=== PATIENT | male | born 1930 | race Caucasian/White ===

== ENCOUNTER 2019-01-25 16:19 | Emergency (ER) | payer MEDICARE, OTHER ==
[2019-01-25] MEDS ORDERED: Albuterol/Ipratropium 3.0-0.5 MG/3 ML Neb Soln ONE (17:57)
[2019-01-25] MEDS: Albuterol/Ipratropium 3.0-0.5 MG/3 ML Neb Soln NEB PRN ×2 (18:01→20:27)
[2019-01-25] MEDS ORDERED: Sodium Chloride 0.9% 10 ML Syringe FLUSH PRN (18:01)
[2019-01-25] MEDS ORDERED: Acetaminophen 325 MG Tab PO ONE (18:16)
[2019-01-25] MEDS ORDERED: Dexamethasone 4 MG/ML SDV IVPUSH ONE (18:45)
[2019-01-25] MEDS ORDERED: cefTRIAXone 2 GM Vial IV ONE (19:25)
[2019-01-25] MEDS ORDERED: Sodium Chloride 0.9% 1,000 ML IV SCH (19:30)
[2019-01-25] MEDS ORDERED: cefTRIAXone 2 GM in Sodium Chloride 0.9% 100 ML IV STA (19:31)
--- NOTE | 2019-01-25 20:00 | EDM.PDOC ---
ED HPI GENERAL MEDICAL PROBLEM - General Chief Complaint: Respiratory Problem Stated Complaint: DIZZY, ABDOMINAL PAIN AND DIFFICULTY TO MOVE LEGS Time Seen by Provider: 01/25/19 17:19 Generalized Pain Score (Numeric/FACES): 5 - Related Data Allergies Allergy/AdvReac Type Severity Reaction Status Date / Time No Known Allergies Allergy Verified 01/25/19 16:38 Home Meds: Home Meds Adalimumab [Humira(Cf) Pen] 1 injection [id number] ASDIRECTED 01/25/19 [History] Albuterol [Proventil HFA] 2 inh INH Q6H PRN 01/25/19 [History] Aspirin [Ecotrin] 162 mg PO DAILY 01/25/19 [History] B2/Vit A,C & E/Lut/Zeaxanth/Mn [Icaps] 1 tab PO DAILY 01/25/19 [History] Budesonide/Formoterol [Symbicort 160-4.5 MCG] 2 inh INH BID 01/25/19 [History] Clopidogrel [Plavix] 75 mg PO DAILY 01/25/19 [History] Levofloxacin [Levaquin] 750 mg PO DAILY 5 Days #5 tablet 01/25/19 [Rx] Losartan [Cozaar] 50 mg PO DAILY 01/25/19 [History] Methotrexate 6 tab PO WEEKLY 01/25/19 [History] Metoprolol Tartrate [Lopressor] 12.5 mg PO BID 01/25/19 [History] Montelukast [Singulair] 10 mg PO BEDTIME 01/25/19 [History] Nitroglycerin [Nitrostat] 0.4 mg SL ASDIRECTED PRN 01/25/19 [History] Omeprazole 20 mg PO DAILY 01/25/19 [History] Rosuvastatin [Crestor] 20 mg PO DAILY 01/25/19 [History] Tamsulosin [Flomax] 0.4 mg PO BEDTIME 01/25/19 [History] Past Medical History HEENT History: Reports: Impaired Vision Cardiovascular History: Reports: CAD, High Cholesterol, MS Respiratory History: Reports: Asthma - Past Surgical History HEENT Surgical History: Reports: Cataract Surgery Cardiovascular Surgical History: Reports: Carotid Stents Musculoskeletal Surgical History: Reports: Knee Replacement, Shoulder Replacement Social & Family History - Tobacco Use Smoking Status *Q: Never Smoker Second Hand Smoke Exposure: No - Caffeine Use Caffeine Use: Reports: Coffee - Recreational Drug Use Recreational Drug Use: No ED ROS GENERAL - Review of Systems Review Of Systems: See Below Constitutional: Reports: Fever, Chills, Weakness HEENT: Reports: No Symptoms Respiratory: Reports: Shortness of Breath, Cough Cardiovascular: Reports: No Symptoms Endocrine: Reports: No Symptoms GI/Abdominal: Reports: No Symptoms : Reports: No Symptoms Musculoskeletal: Reports: Joint Pain (right hip pain) Skin: Reports: No Symptoms Neurological: Reports: Dizziness. Denies: Headache Psychiatric: Reports: No Symptoms ED EXAM, GENERAL - Physical Exam Exam: See Below Exam Limited By: No Limitations General Appearance: Alert, WD/WN, No Apparent Distress Ears: Normal External Exam, Normal Canal, Hearing Grossly Normal, Normal TMs Nose: Normal Inspection, Normal Mucosa, No Blood Throat/Mouth: Normal Inspection, Normal Lips, Normal Teeth, Normal Gums, Normal Oropharynx, Normal Voice, No Airway Compromise Head: Atraumatic, Normocephalic Neck: Normal Inspection, Supple, Non-Tender, Full Range of Motion Respiratory/Chest: No Respiratory Distress, No Accessory Muscle Use, Chest Non- Tender, Decreased Breath Sounds Cardiovascular: Normal Peripheral Pulses, No Edema, No Gallop, No JVD, No Murmur , No Rub, Tachycardia, Extra Beats GI/Abdominal: Normal Bowel Sounds, Soft, Non-Tender, No Organomegaly, No Distention, No Abnormal Bruit, No Mass, Pelvis Stable Back Exam: Normal Inspection, Full Range of Motion Extremities: Normal Inspection, Normal Range of Motion, Non-Tender, No Pedal Edema, Normal Capillary Refill, Other (negative straight leg examination) Neurological: Alert, Oriented, CN II-XII Intact, Normal Cognition, Normal Gait, Normal Reflexes, No Motor/Sensory Deficits Psychiatric: Normal Affect, Normal Mood Skin Exam: Warm, Dry, Intact, Normal Color, No Rash Lymphatic: No Adenopathy EKG INTERPRETATION EKG Date: 01/25/19 Time: 18:35 Rhythm: Other (sinus tachycardia) EKG Interpretation Comments: sinus tachycardia, no avb. No AE, 3 PVC. No ischemic changes. Early transition. No LAD/RAD. No LVH/RVH, QTC WNLS. Course - Vital Signs Last Recorded V/S: Last Vital Signs Temp 101.5 F H 01/25/19 16:39 Pulse 113 H 01/25/19 16:39 Resp 28 H 01/25/19 16:39 BP 135/74 01/25/19 16:39 Pulse Ox 92 L 01/25/19 20:27 - Orders/Labs/Meds Orders: Active Orders 24 hr Category Date Time Status EKG Documentation Completion [RC] STAT Care 01/25/19 18:01 Active RT Aerosol Therapy [RC] ASDIRECTED Care 01/25/19 17:58 Active Chest 2V [CR] Stat Exams 01/25/19 17:20 Taken CULTURE BLOOD [BC] Stat Lab 01/25/19 18:29 Received CULTURE BLOOD [BC] Stat Lab 01/25/19 18:36 Received Albuterol/Ipratropium [DuoNeb 3.0-0.5 MG/3 ML] Med 01/25/19 17:58 Active 3 ml NEB Q2H PRN Sodium Chloride 0.9% [Normal Saline] 1,000 ml Med 01/25/19 19:30 Active IV ASDIRECTED Sodium Chloride 0.9% [Saline Flush] Med 01/25/19 18:01 Active 10 ml FLUSH ASDIRECTED PRN Blood Culture x2 Reflex Set [OM.PC] Stat Oth 01/25/19 17:51 Ordered Saline Lock Insert [OM.PC] Routine Oth 01/25/19 18:01 Ordered Medication Orders Albuterol/Ipratropium (Duoneb 3.0-0.5 Mg/3 Ml) 3 ml NEB Q2H PRN PRN Reason: sob Last Admin: 01/25/19 20:27 Dose: 3 ml Admin: 01/25/19 18:01 Dose: 3 ml Sodium Chloride (Normal Saline) 1,000 mls @ 999 mls/hr IV ASDIRECTED KIERA Last Admin: 01/25/19 19:35 Dose: 999 mls/hr Sodium Chloride (Saline Flush) 10 ml FLUSH ASDIRECTED PRN PRN Reason: Keep Vein Open Last Admin: 01/25/19 18:34 Dose: 10 ml Labs: Laboratory Tests 01/25/19 01/25/19 01/25/19 Range/Units 18:29 18:29 18:29 WBC 18.79 H (4.23-9.07) K/mm3 RBC 4.43 L (4.63-6.08) M/mm3 Hgb 14.3 (13.7-17.5) gm/L Hct 43.1 (40.1-51.0) % MCV 97.3 H (79.0-92.2) fl MCH 32.3 H (25.7-32.2) pg MCHC 33.2 (32.2-35.5) g/dl RDW Std Deviation 50.7 H (35.1-43.9) fL Plt Count 132 L (163-337) K/mm3 MPV 11.2 (9.4-12.3) fl Neut % (Auto) 84.6 H (34.0-67.9) % Lymph % (Auto) 5.5 L (21.8-53.1) % [place] % (Auto) 9.3 (5.3-12.2) % Eos % (Auto) 0.1 L (0.8-7.0) Baso % (Auto) 0.1 (0.1-1.2) % Neut # (Auto) 15.91 H (1.78-5.38) K/mm3 Lymph # (Auto) 1.03 L (1.32-3.57) K/mm3 [place] # (Auto) 1.75 H (0.30-0.82) K/mm3 Eos # (Auto) 0.01 L (0.04-0.54) K/mm3 Baso # (Auto) 0.02 (0.01-0.08) K/mm3 Manual Slide Review Abnormal smear Sodium 137 (136-145) mEq/L Potassium 3.6 (3.5-5.1) mEq/L Chloride 103 (98-107) mEq/L Carbon Dioxide 22 (21-32) mEq/L Anion Gap 15.6 H (5-15) BUN 26 H (7-18) mg/dL Creatinine 1.1 (0.7-1.3) mg/dL Est Cr Clr Drug Dosing 52.91 mL/min Estimated GFR (MDRD) > 60 (>60) mL/min BUN/Creatinine Ratio 23.6 H (14-18) Glucose 138 H (83-115) mg/dL Lactic Acid 1.7 (0.4-2.0) mmol/L Calcium 9.4 (8.5-10.1) mg/dL Total Bilirubin 0.5 (0.2-1.0) mg/dL AST 35 (15-37) U/L ALT 43 (16-63) U/L Alkaline Phosphatase 82 (46-116) U/L Total Protein 7.5 (6.4-8.2) g/dl Albumin 3.8 (3.4-5.0) g/dl Globulin 3.7 gm/dL Albumin/Globulin Ratio 1.0 (1-2) Urine Color (Yellow) Urine Appearance (Clear) Urine pH (5.0-8.0) Ur Specific [place] (1.005-1.030) Urine Protein (Negative) Urine Glucose (UA) (Negative) Urine Ketones (Negative) Urine Occult Blood (Negative) Urine Nitrite (Negative) Urine Bilirubin (Negative) Urine Urobilinogen (0.2-1.0) Ur Leukocyte Esterase (Negative) Urine RBC (0-5) /hpf Urine WBC (0-5) /hpf Ur Epithelial Cells (0-5) /hpf Urine Bacteria (FEW) /hpf Urine Mucus (FEW) /hpf 01/25/19 Range/Units 19:27 WBC (4.23-9.07) K/mm3 RBC (4.63-6.08) M/mm3 Hgb (13.7-17.5) gm/L Hct (40.1-51.0) % MCV (79.0-92.2) fl MCH (25.7-32.2) pg MCHC (32.2-35.5) g/dl RDW Std Deviation (35.1-43.9) fL Plt Count (163-337) K/mm3 MPV (9.4-12.3) fl Neut % (Auto) (34.0-67.9) % Lymph % (Auto) (21.8-53.1) % [place] % (Auto) (5.3-12.2) % Eos % (Auto) (0.8-7.0) Baso % (Auto) (0.1-1.2) % Neut # (Auto) (1.78-5.38) K/mm3 Lymph # (Auto) (1.32-3.57) K/mm3 [place] # (Auto) (0.30-0.82) K/mm3 Eos # (Auto) (0.04-0.54) K/mm3 Baso # (Auto) (0.01-0.08) K/mm3 Manual Slide Review Sodium (136-145) mEq/L Potassium (3.5-5.1) mEq/L Chloride (98-107) mEq/L Carbon Dioxide (21-32) mEq/L Anion Gap (5-15) BUN (7-18) mg/dL Creatinine (0.7-1.3) mg/dL Est Cr Clr Drug Dosing mL/min Estimated GFR (MDRD) (>60) mL/min BUN/Creatinine Ratio (14-18) Glucose (83-115) mg/dL Lactic Acid (0.4-2.0) mmol/L Calcium (8.5-10.1) mg/dL Total Bilirubin (0.2-1.0) mg/dL AST (15-37) U/L ALT (16-63) U/L Alkaline Phosphatase (46-116) U/L Total Protein (6.4-8.2) g/dl Albumin (3.4-5.0) g/dl Globulin gm/dL Albumin/Globulin Ratio (1-2) Urine Color Dark yellow (Yellow) Urine Appearance Clear (Clear) Urine pH 5.5 (5.0-8.0) Ur Specific [place] 1.025 (1.005-1.030) Urine Protein Trace H (Negative) Urine Glucose (UA) Negative (Negative) Urine Ketones Trace H (Negative) Urine Occult Blood 1+ H (Negative) Urine Nitrite Negative (Negative) Urine Bilirubin Negative (Negative) Urine Urobilinogen 0.2 (0.2-1.0) Ur Leukocyte Esterase 1+ H (Negative) Urine RBC 0-5 (0-5) /hpf Urine WBC 5-10 H (0-5) /hpf Ur Epithelial Cells 0-5 (0-5) /hpf Urine Bacteria Few (FEW) /hpf Urine Mucus Moderate H (FEW) /hpf Meds: Medications Generic Name Dose Route Start Last Admin Trade Name Freq PRN Reason Stop Dose Admin Albuterol/Ipratropium 3 ml 01/25/19 17:58 01/25/19 20:27 Duoneb 3.0-0.5 Mg/3 Ml NEB 3 ml Q2H PRN Administration sob Sodium Chloride 1,000 mls @ 999 mls/hr 01/25/19 19:30 01/25/19 19:35 Normal Saline IV 999 mls/hr ASDIRECTED KIERA Administration Sodium Chloride 10 ml 01/25/19 18:01 01/25/19 18:34 Saline Flush FLUSH 10 ml ASDIRECTED PRN Administration Keep Vein Open Discontinued Medications Generic Name Dose Route Start Last Admin Trade Name Lynette PRN Reason Stop Dose Admin Acetaminophen 650 mg 01/25/19 18:16 01/25/19 18:33 Tylenol PO 01/25/19 18:17 650 mg NOW ONE Administration Albuterol/Ipratropium Confirm 01/25/19 17:57 01/25/19 18:02 Duoneb 3.0-0.5 Mg/3 Ml Administered 01/25/19 17:58 Not Given Dose 3 ml .ROUTE .STK-MED ONE Ceftriaxone Sodium 2 gm 01/25/19 19:25 01/25/19 19:38 Rocephin IV 01/25/19 19:26 Not Given ONETIME ONE Dexamethasone 4 mg 01/25/19 18:45 01/25/19 18:51 Dexamethasone IVPUSH 01/25/19 18:46 4 mg ONETIME ONE Administration Ceftriaxone Sodium 2 gm/ 100 mls @ 200 mls/hr 01/25/19 19:31 01/25/19 19:35 Sodium Chloride IV 01/25/19 20:00 200 mls/hr ONETIME STA Administration - Re-Assessments/Exams Free Text/Narrative Re-Assessment/Exam: 01/25/19 20:00 88 y/o male presented to ER with cc "not feeling well and right hip pain." He did have fever 101.5 while in the ED. His WBC was 18.79, RBC 4.43, H & H 14.3/ 43.1 Na + 137 K+ 3.6 chloride 103 Co2 22 Lactic acid 1.7. Influenza was negative. His preliminary chest x-ray revealed no acute finding. His urinalysis is pending. He received NS bolus and Rocephin 2 gm IVPB and his condition improved. 01/25/19 20:45 Urinalysis is consistent with UTI. + 1 blood, + 1 leukocytes. I will discharge home with Levaquin. Instructed to followup with his PCP next week. Instructed to return to the ER for any new or acute worsening symptoms. Patient verbalized understanding and is comfortable with plan for discharge. He is stable at time of discharge. Departure - Departure Time of Disposition: 20:47 Disposition: Home, Self-Care 01 Clinical Impression: UTI (urinary tract infection) Qualifiers: Urinary tract infection type: site unspecified Hematuria presence: with hematuria Qualified Code(s): N39.0 - Urinary tract infection, site not specified ; R31.9 - Hematuria, unspecified - Discharge Information Prescriptions: Levofloxacin [Levaquin] 750 mg PO DAILY 5 Days #5 tablet Instructions: Urinary Tract Infection, Adult, [id number] Referrals: Micky Laird MD [Primary Care Provider] - Forms: ED Department Discharge Additional Instructions: You have been diagnosis with urinary tract infection. Your chest x-ray revealed no acute disease. Your blood studies indicates you have a infection. You are to take Levaquin daily for 5 days. Follow up with Dr. José next week. Return to the ER for any new or acute worsening symptoms. - My Orders Last 24 Hours: My Active Orders 01/25/19 17:20 Chest 2V [CR] Stat 01/25/19 17:51 Blood Culture x2 Reflex Set [OM.PC] Stat 01/25/19 17:58 RT Aerosol Therapy [RC] ASDIRECTED Albuterol/Ipratropium [DuoNeb 3.0-0.5 MG/3 ML] 3 ml NEB Q2H PRN 01/25/19 18:01 EKG Documentation Completion [RC] STAT Sodium Chloride 0.9% [Saline Flush] 10 ml FLUSH ASDIRECTED PRN Saline Lock Insert [OM.PC] Routine 01/25/19 18:29 CULTURE BLOOD [BC] Stat 01/25/19 18:36 CULTURE BLOOD [BC] Stat 01/25/19 19:30 Sodium Chloride 0.9% [Normal Saline] 1,000 ml IV ASDIRECTED - Assessment/Plan Last 24 Hours: My Active Orders 01/25/19 17:20 Chest 2V [CR] Stat 01/25/19 17:51 Blood Culture x2 Reflex Set [OM.PC] Stat 01/25/19 17:58 RT Aerosol Therapy [RC] ASDIRECTED Albuterol/Ipratropium [DuoNeb 3.0-0.5 MG/3 ML] 3 ml NEB Q2H PRN 01/25/19 18:01 EKG Documentation Completion [RC] STAT Sodium Chloride 0.9% [Saline Flush] 10 ml FLUSH ASDIRECTED PRN Saline Lock Insert [OM.PC] Routine 01/25/19 18:29 CULTURE BLOOD [BC] Stat 01/25/19 18:36 CULTURE BLOOD [BC] Stat 01/25/19 19:30 Sodium Chloride 0.9% [Normal Saline] 1,000 ml IV ASDIRECTED
--- NOTE | 2019-01-27 08:27 | CR ---
Chest: PA and lateral views of the chest are obtained. Comparison: Prior chest x-ray of 01/05/13. Azygos lobe is seen. Minimal left basilar atelectasis is noted. Lungs otherwise are clear. Surgical screw is noted between the clavicle and coracoid process. 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 Degenerative change is noted within the spine. Impression: 1. Mild left basilar atelectasis. Other incidental findings. Nothing acute is appreciated. Diagnostic code #2
== END 2019-01-25 21:02 | disposition home or self-care (01) ==
LOC: JD.ED 16:19
DX: N39.0 Urinary tract infection, site not specified (principal); I25.2 Old myocardial infarction; Z79.899 Other long term (current) drug therapy
CPT/HCPCS: 36415; 71046; 80053; 81001; 83605; 85025; 87040; 87804; 93005; 94640; 96361; 96365; 96375; 99285; A9270; J0696; J1100; J7030; J7040; 99284; J7620-GY

== ENCOUNTER 2020-10-22 10:18 | Observation (INO) | payer MEDICARE, OTHER ==
[2020-10-22 11:42] LABS: ACETAMINOPHEN 0 ug/mL (10-30)
--- NOTE | 2020-10-22 13:05 | EDM.PDOC ---
ED HPI GENERAL MEDICAL PROBLEM - General Chief Complaint: Neuro Symptoms/Deficits Stated Complaint: SPEECH PROBLEM, BALANCE IS OFF POSSIBLE STROKE Time Seen by Provider: 10/22/20 10:18 - History of Present Illness INITIAL COMMENTS - FREE TEXT/NARRATIVE: 89-year-old brought in by EMS with a possible stroke, balance problems and speech difficulties. He was last known normal yesterday before 1 PM. At that time he did drive his to [place] for doctor's appointments it is unclear if he had an appointment or not and if he was started on any new medications or not we are trying to find this out. Patient is having difficulties speaking and understanding questions. He is not having any gross motor abnormalities. The patient's has some degree of dementia and is not able to communicate with the patient's son about anything from yesterday. The patient son usually checks on the patient every morning. They live out of town. His medication list indicates he is on Plavix. - Related Data Allergies Allergy/AdvReac Type Severity Reaction Status Date / Time No Known Allergies Allergy Verified 10/22/20 10:29 Home Meds: Home Meds Aspirin [Ecotrin EC] 162 mg PO DAILY 01/25/19 [History] Budesonide/Formoterol [Symbicort 160-4.5 MCG] 2 inh INH BID 01/25/19 [History] Clopidogrel [Plavix] 75 mg PO DAILY 01/25/19 [History] Losartan [Cozaar] 50 mg PO DAILY 01/25/19 [History] Methotrexate 6 tab PO WEEKLY 01/25/19 [History] Metoprolol Tartrate [Lopressor] 12.5 mg PO BID 01/25/19 [History] Montelukast [Singulair] 10 mg PO BEDTIME 01/25/19 [History] Nitroglycerin [Nitrostat] 0.4 mg SL ASDIRECTED PRN 01/25/19 [History] Omeprazole 20 mg PO DAILY 01/25/19 [History] Rosuvastatin [Crestor] 20 mg PO DAILY 01/25/19 [History] Acetaminophen 650 mg PO Q4HR PRN 10/22/20 [History] Adalimumab [Humira Pen] 1 dose SQ ASDIRECTED 10/22/20 [History] Furosemide [Lasix] 20 mg PO DAILY PRN 10/22/20 [History] Hydrocodone/Acetaminophen [Hydrocodone-Acetamin 5-325 mg] 1 tab PO ASDIRECTED PRN 10/22/20 [History] Losartan [Cozaar] 50 mg PO DAILY 10/22/20 [History] Metoprolol Tartrate 12.5 mg PO DAILY 10/22/20 [History] Multivitamin with Minerals [Multiple Vitamin] 1 tab PO DAILY 10/22/20 [History] Past Medical History HEENT History: Reports: Impaired Vision Cardiovascular History: Reports: CAD, High Cholesterol, SC Respiratory History: Reports: Asthma Oncologic (Cancer) History: Reports: Malignant Melanoma, Other (See Below) Dermatologic History: Reports: Melanoma, Other (See Below) - Past Surgical History HEENT Surgical History: Reports: Cataract Surgery Cardiovascular Surgical History: Reports: Carotid Stents Musculoskeletal Surgical History: Reports: Knee Replacement, Shoulder Replacement Oncologic Surgical History: Reports: Other (See Below) Other Oncologic Surgeries/Procedures: skin biopsy of nose and ears Dermatological Surgical History: Reports: Skin Biopsy, Skin Graft Social & Family History - Tobacco Use Tobacco Use Status *Q: Never Tobacco User Second Hand Smoke Exposure: No - Caffeine Use Caffeine Use: Reports: Coffee - Recreational Drug Use Recreational Drug Use: No ED ROS GENERAL - Review of Systems Review Of Systems: See Below Reason Not Obtained: Patient is unable to provide an adequate review of systems ED EXAM, NEURO - Physical Exam Exam: See Below Exam Limited By: Other (She has a hard time understanding directions and expressing himself) General Appearance: Alert, No Apparent Distress Eye Exam: Bilateral Eye: Normal Inspection, PERRL Ears: Normal External Exam, Normal Canal, Hearing Grossly Normal, Normal TMs, Other (Just above his left ear he has some areas that have been bleeding apparently this was from having some cryotherapy for some small skin cancers) Nose: Normal Inspection, Normal Mucosa, No Blood, Other (Is a well-healed incision site on the right side of his nose from where a skin cancer was removed) Throat/Mouth: Normal Inspection, Normal Lips, Other (Dentures in place partial on the lowers). No: Normal Teeth, Normal Gums Head Exam: Atraumatic, Normocephalic Neck: Normal Inspection, Supple, Non-Tender, Full Range of Motion. No: Lymphadenopathy (L), Lymphadenopathy (R) Respiratory/Chest: No Respiratory Distress, Lungs Clear, Normal Breath Sounds Cardiovascular: Regular Rate, Rhythm, No Murmur, Other (Trace lower extremity pitting edema) GI/Abdominal: Normal Bowel Sounds, Soft, Other (No apparent tenderness with palpation) Neurological: Alert, Other (Patient really has a hard time interpreting and following directions as well as expressing himself however best we can tell there is no focal weakness or abnormalities). No: Oriented x 3 DTR: 2+: Patella (R) Back Exam: Normal Inspection, Other (No apparent tenderness) Extremities: Normal Inspection, Pedal Edema (Trace lower extremity edema that is pitting) Skin Exam: Warm, Dry, Intact #1 Interpretation EKG Date: 10/22/20 Rhythm: NSR [place]: Normal P-Wave: Present QRS: Other (Borderline Q waves in lead III possibly aVF otherwise normal developing early transition) ST-T: Normal QT: Normal Comparison: Change From Previous EKG (Abnormal EKG no significant changes from January 2019 other than the tachycardia noted then has resolved) Course - Vital Signs Last Recorded V/S: Last Vital Signs Temp 36.3 C 10/22/20 10:26 Pulse 83 10/22/20 10:26 Resp 16 10/22/20 10:26 BP 154/90 H 10/22/20 10:26 Pulse Ox 93 L 10/22/20 10:26 - Orders/Labs/Meds Orders: Active Orders 24 hr Category Date Time Status EKG Documentation Completion [RC] STAT Care 10/22/20 11:22 Active Brain wo Cont [MR] Stat Exams 10/22/20 12:44 Taken Chest 1V Frontal [CR] Stat Exams 10/22/20 10:36 Taken Head wo Cont [CT] Stat Exams 10/22/20 10:35 Taken CORONAVIRUS COVID-19 DIEUDONNE [MOLEC] Stat Lab 10/22/20 14:35 Received Labs: Laboratory Tests 10/22/20 10/22/20 10/22/20 Range/Units 10:40 10:40 10:40 WBC 4.63 (4.23-9.07) K/mm3 RBC 4.43 L (4.63-6.08) M/mm3 Hgb 13.9 (13.7-17.5) gm/dl Hct 43.7 (40.1-51.0) % MCV 98.6 H (79.0-92.2) fl MCH 31.4 (25.7-32.2) pg MCHC 31.8 L (32.2-35.5) g/dl RDW Std Deviation 49.0 H (35.1-43.9) fL Plt Count 194 (163-337) K/mm3 MPV 10.4 (9.4-12.3) fl Neut % (Auto) 46.7 (34.0-67.9) % Lymph % (Auto) 25.1 (21.8-53.1) % [place] % (Auto) 21.6 H (5.3-12.2) % Eos % (Auto) 6.0 (0.8-7.0) Baso % (Auto) 0.4 (0.1-1.2) % Neut # (Auto) 2.16 (1.78-5.38) K/mm3 Lymph # (Auto) 1.16 L (1.32-3.57) K/mm3 [place] # (Auto) 1.00 H (0.30-0.82) K/mm3 Eos # (Auto) 0.28 (0.04-0.54) K/mm3 Baso # (Auto) 0.02 (0.01-0.08) K/mm3 PT 11.6 (9.7-12.0) SECONDS INR 1.09 APTT 27.1 (21.7-31.4) SECONDS ABG Carboxyhemoglobin (0.00-1.50) %THgb Sodium 139 (136-145) mEq/L Potassium 4.2 (3.5-5.1) mEq/L Chloride 104 (98-107) mEq/L Carbon Dioxide 28 (21-32) mEq/L Anion Gap 11.2 (5-15) BUN 16 (7-18) mg/dL Creatinine 1.1 (0.7-1.3) mg/dL Est Cr Clr Drug Dosing 51.93 mL/min Estimated GFR (MDRD) > 60 (>60) mL/min BUN/Creatinine Ratio 14.5 (14-18) Glucose 126 H (83-115) mg/dL Calcium 9.6 (8.5-10.1) mg/dL Total Bilirubin 0.5 (0.2-1.0) mg/dL AST 32 (15-37) U/L ALT 34 (16-63) U/L Alkaline Phosphatase 82 (46-116) U/L Troponin I < 0.017 (0.00-0.056) ng/mL Total Protein 7.8 (6.4-8.2) g/dl Albumin 3.7 (3.4-5.0) g/dl Globulin 4.1 gm/dL Albumin/Globulin Ratio 0.9 L (1-2) Urine Color (Yellow) Urine Appearance (Clear) Urine pH (5.0-8.0) Ur Specific [place] (1.005-1.030) Urine Protein (Negative) Urine Glucose (UA) (Negative) Urine Ketones (Negative) Urine Occult Blood (Negative) Urine Nitrite (Negative) Urine Bilirubin (Negative) Urine Urobilinogen (0.2-1.0) Ur Leukocyte Esterase (Negative) Salicylates (2.8-20) mg/dL Urine Opiates Screen (DBEAUI=917) Ur Buprenorphine Scrn (CUTOFF=10) Ur Oxycodone Screen (AUW4RR=629) Urine Methadone Screen (LMF4DA=861) Ur Propoxyphene Screen (ADRTFF=074) Acetaminophen 0 L (10-30) ug/mL Ur Barbiturates Screen (DXYJHO=714) Ur Tricyclics Screen (MGTGBB=582) Ur Phencyclidine Scrn (CUTOFF=25) Ur Amphetamine Screen (AZDQKA=892) U Methamphetamines Scrn (XJZOGE=563) U Benzodiazepines Scrn (AXUCVQ=967) U Cocaine Metab Screen (LPWXZT=552) U Marijuana (THC) Screen (CUTOFF=50) Ethyl Alcohol 0.00 (0.00) gm% 10/22/20 10/22/20 10/22/20 Range/Units 10:40 10:49 12:25 WBC (4.23-9.07) K/mm3 RBC (4.63-6.08) M/mm3 Hgb (13.7-17.5) gm/dl Hct (40.1-51.0) % MCV (79.0-92.2) fl MCH (25.7-32.2) pg MCHC (32.2-35.5) g/dl RDW Std Deviation (35.1-43.9) fL Plt Count (163-337) K/mm3 MPV (9.4-12.3) fl Neut % (Auto) (34.0-67.9) % Lymph % (Auto) (21.8-53.1) % [place] % (Auto) (5.3-12.2) % Eos % (Auto) (0.8-7.0) Baso % (Auto) (0.1-1.2) % Neut # (Auto) (1.78-5.38) K/mm3 Lymph # (Auto) (1.32-3.57) K/mm3 [place] # (Auto) (0.30-0.82) K/mm3 Eos # (Auto) (0.04-0.54) K/mm3 Baso # (Auto) (0.01-0.08) K/mm3 PT (9.7-12.0) SECONDS INR APTT (21.7-31.4) SECONDS ABG Carboxyhemoglobin 1.2 (0.00-1.50) %THgb Sodium (136-145) mEq/L Potassium (3.5-5.1) mEq/L Chloride (98-107) mEq/L Carbon Dioxide (21-32) mEq/L Anion Gap (5-15) BUN (7-18) mg/dL Creatinine (0.7-1.3) mg/dL Est Cr Clr Drug Dosing mL/min Estimated GFR (MDRD) (>60) mL/min BUN/Creatinine Ratio (14-18) Glucose (83-115) mg/dL Calcium (8.5-10.1) mg/dL Total Bilirubin (0.2-1.0) mg/dL AST (15-37) U/L ALT (16-63) U/L Alkaline Phosphatase (46-116) U/L Troponin I (0.00-0.056) ng/mL Total Protein (6.4-8.2) g/dl Albumin (3.4-5.0) g/dl Globulin gm/dL Albumin/Globulin Ratio (1-2) Urine Color Yellow (Yellow) Urine Appearance Clear (Clear) Urine pH 7.0 (5.0-8.0) Ur Specific [place] 1.025 (1.005-1.030) Urine Protein Negative (Negative) Urine Glucose (UA) Negative (Negative) Urine Ketones Negative (Negative) Urine Occult Blood Negative (Negative) Urine Nitrite Negative (Negative) Urine Bilirubin Negative (Negative) Urine Urobilinogen 0.2 (0.2-1.0) Ur Leukocyte Esterase Negative (Negative) Salicylates 0.4 L (2.8-20) mg/dL Urine Opiates Screen (TJJZCZ=278) Ur Buprenorphine Scrn (CUTOFF=10) Ur Oxycodone Screen (POB2VW=799) Urine Methadone Screen (PFF7LL=360) Ur Propoxyphene Screen (EUXJLE=355) Acetaminophen (10-30) ug/mL Ur Barbiturates Screen (HPEYRH=106) Ur Tricyclics Screen (FDQGQL=069) Ur Phencyclidine Scrn (CUTOFF=25) Ur Amphetamine Screen (GHGRGM=381) U Methamphetamines Scrn (CPVLNX=216) U Benzodiazepines Scrn (ITQBKP=600) U Cocaine Metab Screen (OGRNNZ=030) U Marijuana (THC) Screen (CUTOFF=50) Ethyl Alcohol (0.00) gm% 10/22/20 Range/Units 12:25 WBC (4.23-9.07) K/mm3 RBC (4.63-6.08) M/mm3 Hgb (13.7-17.5) gm/dl Hct (40.1-51.0) % MCV (79.0-92.2) fl MCH (25.7-32.2) pg MCHC (32.2-35.5) g/dl RDW Std Deviation (35.1-43.9) fL Plt Count (163-337) K/mm3 MPV (9.4-12.3) fl Neut % (Auto) (34.0-67.9) % Lymph % (Auto) (21.8-53.1) % [place] % (Auto) (5.3-12.2) % Eos % (Auto) (0.8-7.0) Baso % (Auto) (0.1-1.2) % Neut # (Auto) (1.78-5.38) K/mm3 Lymph # (Auto) (1.32-3.57) K/mm3 [place] # (Auto) (0.30-0.82) K/mm3 Eos # (Auto) (0.04-0.54) K/mm3 Baso # (Auto) (0.01-0.08) K/mm3 PT (9.7-12.0) SECONDS INR APTT (21.7-31.4) SECONDS ABG Carboxyhemoglobin (0.00-1.50) %THgb Sodium (136-145) mEq/L Potassium (3.5-5.1) mEq/L Chloride (98-107) mEq/L Carbon Dioxide (21-32) mEq/L Anion Gap (5-15) BUN (7-18) mg/dL Creatinine (0.7-1.3) mg/dL Est Cr Clr Drug Dosing mL/min Estimated GFR (MDRD) (>60) mL/min BUN/Creatinine Ratio (14-18) Glucose (83-115) mg/dL Calcium (8.5-10.1) mg/dL Total Bilirubin (0.2-1.0) mg/dL AST (15-37) U/L ALT (16-63) U/L Alkaline Phosphatase (46-116) U/L Troponin I (0.00-0.056) ng/mL Total Protein (6.4-8.2) g/dl Albumin (3.4-5.0) g/dl Globulin gm/dL Albumin/Globulin Ratio (1-2) Urine Color (Yellow) Urine Appearance (Clear) Urine pH (5.0-8.0) Ur Specific [place] (1.005-1.030) Urine Protein (Negative) Urine Glucose (UA) (Negative) Urine Ketones (Negative) Urine Occult Blood (Negative) Urine Nitrite (Negative) Urine Bilirubin (Negative) Urine Urobilinogen (0.2-1.0) Ur Leukocyte Esterase (Negative) Salicylates (2.8-20) mg/dL Urine Opiates Screen Negative (VBZMJK=154) Ur Buprenorphine Scrn Negative (CUTOFF=10) Ur Oxycodone Screen Negative (SVI7MG=726) Urine Methadone Screen Negative (DUF1RV=702) Ur Propoxyphene Screen Negative (ZSVTRM=216) Acetaminophen (10-30) ug/mL Ur Barbiturates Screen Negative (USAUCT=025) Ur Tricyclics Screen Negative (ORVALJ=349) Ur Phencyclidine Scrn Negative (CUTOFF=25) Ur Amphetamine Screen Negative (YHMWRS=246) U Methamphetamines Scrn Negative (CBIBRM=908) U Benzodiazepines Scrn Negative (VDDOWR=709) U Cocaine Metab Screen Negative (XDSQJA=678) U Marijuana (THC) Screen Negative (CUTOFF=50) Ethyl Alcohol (0.00) gm% - Re-Assessments/Exams Free Text/Narrative Re-Assessment/Exam: 10/22/20 13:35 For evaluation is unremarkable head CT is unremarkable EKG is nondiagnostic awaiting urinalysis and toxicology we are able to get an MRI on him shortly. Case discussed with Dr. Infante, neurologist at [facility] in [place] and we will get back to him after the MRI is done. 10/22/20 13:36 We did get a hold of his clinic and he is on Plavix and aspirin 162 mg a day. Yesterday he was not started on any new medication. Currently he was seen at the [facility]. 10/22/20 14:56 The patient is doing much better he is at least 90% improved after returning from MRI. He is able to talk in full sentences. Patient son thinks for practical purposes he is back to baseline. MRI is nondiagnostic. This was interpreted by Dr. Infante the neurologist and by radiology, radiology recognize the central and cortical atrophy with diffuse subcortical ischemic changes but nothing acute, no evidence of a TIA. Dr. Infante did suggest observation. Case discussed with Dr. Rogers, our hospitalist the patient will be placed on observation. Departure - Departure Time of Disposition: 14:52 Disposition: Refer to Observation Clinical Impression: Unknown if patient has history of neurologic disorder - Discharge Information Referrals: Micky Laird MD [Primary Care Provider] - Forms: ED Department Discharge Sepsis Event Note (ED) - Evaluation Sepsis Screening Result: No Definite Risk - Focused Exam Vital Signs: Vital Signs Temp Pulse Resp BP Pulse Ox 10/22/20 10:26 36.3 C 83 16 154/90 H 93 L - My Orders Last 24 Hours: My Active Orders 10/22/20 10:35 Head wo Cont [CT] Stat 10/22/20 10:36 Chest 1V Frontal [CR] Stat 10/22/20 11:22 EKG Documentation Completion [RC] STAT 10/22/20 12:44 Brain wo Cont [MR] Stat 10/22/20 14:35 CORONAVIRUS COVID-19 DIEUDONNE [MOLEC] Stat - Assessment/Plan Last 24 Hours: My Active Orders 10/22/20 10:35 Head wo Cont [CT] Stat 10/22/20 10:36 Chest 1V Frontal [CR] Stat 10/22/20 11:22 EKG Documentation Completion [RC] STAT 10/22/20 12:44 Brain wo Cont [MR] Stat 10/22/20 14:35 CORONAVIRUS COVID-19 DIEUDONNE [MOLEC] Stat
[2020-10-22] MEDS ORDERED: Clopidogrel 75 MG Tab PO ONE (15:06)
[2020-10-22] MEDS ORDERED: Aspirin 81 MG Tab.Chew PO ONE (15:06)
[2020-10-22] MEDS ORDERED: Losartan 50 MG Tab PO ONE (15:06)
[2020-10-22] MEDS ORDERED: Acetaminophen 325 MG Tab PO PRN (20:19)
--- NOTE | 2020-10-22 21:09 | PCM.HP.2 ---
H&P History of Present Illness - General Date of Service: 10/22/20 Admit Problem/Dx: Admission Diagnosis/Problem Admission Diagnosis/Problem Neurological complaint - History of Present Illness Initial Comments - Free Text/Narative: 89-year-old male brought in by EMS for possible stroke. Patient was brought into the emergency department after being found with difficulty speaking and understanding questions. In the emergency department patient had neurological work-up including CT, MRI, and consultation with neurology. Patient had no abnormalities on MRI to suggest TIA or stroke. Patient had partial recovery by time he made it to the floor but was still having difficulty with finding the right words. Dr. Infante in neurology was consulted again and he stated that he was not sure exactly what the problem was but it was not an acute neurological event. He stated that the most common cause of this in this age group is secondary to dementia. In the emergency department vital signs were stable, white count 4.6, absolute neutrophils 2.16, no bandemia or left shift, hemoglobin 13.9, platelets 194,000, normal renal and hepatic function, glucose 126, troponin negative, INR and PTT normal, negative SARS-CoV-2, negative urine drug screen and alcohol level, negative carboxyhemoglobin, negative UA. - Related Data Allergies/Adverse Reactions: Allergies Allergy/AdvReac Type Severity Reaction Status Date / Time No Known Allergies Allergy Verified 10/22/20 18:39 Home Medications: Home Meds Aspirin [Ecotrin EC] 162 mg PO DAILY 01/25/19 [History] Budesonide/Formoterol [Symbicort 160-4.5 MCG] 2 inh INH BID 01/25/19 [History] Clopidogrel [Plavix] 75 mg PO DAILY 01/25/19 [History] Methotrexate 6 tab PO WEEKLY 01/25/19 [History] Montelukast [Singulair] 10 mg PO BEDTIME 01/25/19 [History] Nitroglycerin [Nitrostat] 0.4 mg SL ASDIRECTED PRN 01/25/19 [History] Rosuvastatin [Crestor] 20 mg PO DAILY 01/25/19 [History] Acetaminophen 650 mg PO Q4HR PRN 10/22/20 [History] Adalimumab [Humira Pen] 1 dose SQ ASDIRECTED 10/22/20 [History] Furosemide [Lasix] 20 mg PO DAILY PRN 10/22/20 [History] Hydrocodone/Acetaminophen [Hydrocodone-Acetamin 5-325 mg] 1 tab PO QID PRN 10/22/20 [History] Losartan [Cozaar] 50 mg PO DAILY 10/22/20 [History] Metoprolol Tartrate 25 mg PO BID 10/22/20 [History] Multivitamin with Minerals [Multiple Vitamin] 1 tab PO DAILY 10/22/20 [History] Past Medical History HEENT History: Reports: Impaired Vision Cardiovascular History: Reports: CAD, High Cholesterol, [place] Respiratory History: Reports: Asthma Neurological History: Reports: CVA Other Neuro History: 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 Oncologic (Cancer) History: Reports: Malignant Melanoma, Other (See Below) Dermatologic History: Reports: Melanoma, Other (See Below) - Past Surgical History HEENT Surgical History: Reports: Cataract Surgery Cardiovascular Surgical History: Reports: Carotid Stents Musculoskeletal Surgical History: Reports: Knee Replacement, Shoulder Replacem ent Oncologic Surgical History: Reports: Other (See Below) Other Oncologic Surgeries/Procedures: skin biopsy of nose and ears Dermatological Surgical History: Reports: Skin Biopsy, Skin Graft Social & Family History - Tobacco Use Tobacco Use Status *Q: Never Tobacco User Second Hand Smoke Exposure: No - Caffeine Use Caffeine Use: Reports: Coffee - Recreational Drug Use Recreational Drug Use: No H&P Review of Systems - Review of Systems: Review Of Systems: Comprehensive ROS is negative, except as noted in HPI. Exam - Exam Exam: See Below - Vital Signs Vital Signs: Last Vital Signs Temp 99.7 F 10/22/20 17:59 Pulse 69 10/22/20 17:59 Resp 20 10/22/20 17:59 BP 135/67 10/22/20 17:59 Pulse Ox 92 L 10/22/20 17:59 Weight: 207 lb 14.4 oz - Exam Quality Assessment: No: Supplemental Oxygen General: Alert, Oriented, 4 HEENT: Conjunctiva Clear, Mucosa Moist & [place], Normal Nasal Septum. No: Hearing Intact Neck: Supple, Trachea Midline, 2 Lungs: Clear to Auscultation, Normal Respiratory Effort Cardiovascular: Regular Rate, Regular Rhythm GI/Abdominal Exam: Normal Bowel Sounds, Soft, Non-Tender, No Organomegaly, No Distention, No Abnormal Bruit Back Exam: Normal Inspection Extremities: Normal Inspection, Normal Range of Motion, Non-Tender, No Pedal Edema, Normal Capillary Refill Peripheral Pulses: 2+: Posterior Tibial (L), Posterior Tibial (R), Dorsalis Pedis (L), Dorsalis Pedis (R) Skin: Warm, Dry, Intact Neurological: Cranial Nerves Intact Neuro Extensive - Mental Status: Alert, Oriented x3, Normal Mood/Affect, Normal Cognition Neuro Extensive - Motor, Sensory, Reflexes: Expressive Aphasia Psychiatric: Alert, Normal Affect, Normal Mood - Patient Data Lab Results Last 24 hrs: Laboratory Results - last 24 hr 10/22/20 10/22/20 10/22/20 Range/Units 10:40 10:40 10:40 WBC 4.63 (4.23-9.07) K/mm3 RBC 4.43 L (4.63-6.08) M/mm3 Hgb 13.9 (13.7-17.5) gm/dl Hct 43.7 (40.1-51.0) % MCV 98.6 H (79.0-92.2) fl MCH 31.4 (25.7-32.2) pg MCHC 31.8 L (32.2-35.5) g/dl RDW Std Deviation 49.0 H (35.1-43.9) fL Plt Count 194 (163-337) K/mm3 MPV 10.4 (9.4-12.3) fl Neut % (Auto) 46.7 (34.0-67.9) % Lymph % (Auto) 25.1 (21.8-53.1) % [place] % (Auto) 21.6 H (5.3-12.2) % Eos % (Auto) 6.0 (0.8-7.0) Baso % (Auto) 0.4 (0.1-1.2) % Neut # (Auto) 2.16 (1.78-5.38) K/mm3 Lymph # (Auto) 1.16 L (1.32-3.57) K/mm3 [place] # (Auto) 1.00 H (0.30-0.82) K/mm3 Eos # (Auto) 0.28 (0.04-0.54) K/mm3 Baso # (Auto) 0.02 (0.01-0.08) K/mm3 PT 11.6 (9.7-12.0) SECONDS INR 1.09 APTT 27.1 (21.7-31.4) SECONDS ABG Carboxyhemoglobin (0.00-1.50) %THgb Sodium 139 (136-145) mEq/L Potassium 4.2 (3.5-5.1) mEq/L Chloride 104 (98-107) mEq/L Carbon Dioxide 28 (21-32) mEq/L Anion Gap 11.2 (5-15) BUN 16 (7-18) mg/dL Creatinine 1.1 (0.7-1.3) mg/dL Est Cr Clr Drug Dosing 51.93 mL/min Estimated GFR (MDRD) > 60 (>60) mL/min BUN/Creatinine Ratio 14.5 (14-18) Glucose 126 H (83-115) mg/dL Calcium 9.6 (8.5-10.1) mg/dL Total Bilirubin 0.5 (0.2-1.0) mg/dL AST 32 (15-37) U/L ALT 34 (16-63) U/L Alkaline Phosphatase 82 (46-116) U/L Troponin I < 0.017 (0.00-0.056) ng/mL C-Reactive Protein (<1.0) mg/dL Total Protein 7.8 (6.4-8.2) g/dl Albumin 3.7 (3.4-5.0) g/dl Globulin 4.1 gm/dL Albumin/Globulin Ratio 0.9 L (1-2) Urine Color (Yellow) Urine Appearance (Clear) Urine pH (5.0-8.0) Ur Specific [place] (1.005-1.030) Urine Protein (Negative) Urine Glucose (UA) (Negative) Urine Ketones (Negative) Urine Occult Blood (Negative) Urine Nitrite (Negative) Urine Bilirubin (Negative) Urine Urobilinogen (0.2-1.0) Ur Leukocyte Esterase (Negative) Salicylates (2.8-20) mg/dL Urine Opiates Screen (OJXRNJ=881) Ur Buprenorphine Scrn (CUTOFF=10) Ur Oxycodone Screen (LIY8DN=394) Urine Methadone Screen (VGT3MW=280) Ur Propoxyphene Screen (XXHMHY=161) Acetaminophen 0 L (10-30) ug/mL Ur Barbiturates Screen (KBQWSI=519) Ur Tricyclics Screen (PDJGKM=019) Ur Phencyclidine Scrn (CUTOFF=25) Ur Amphetamine Screen (BCOPTP=599) U Methamphetamines Scrn (XZQHKS=512) U Benzodiazepines Scrn (ZPWUMD=139) U Cocaine Metab Screen (VCOBKL=280) U Marijuana (THC) Screen (CUTOFF=50) Ethyl Alcohol 0.00 (0.00) gm% SARS-CoV-2 RNA (DIEUDONNE) (NEGATIVE) 10/22/20 10/22/20 10/22/20 Range/Units 10:40 10:46 10:49 WBC (4.23-9.07) K/mm3 RBC (4.63-6.08) M/mm3 Hgb (13.7-17.5) gm/dl Hct (40.1-51.0) % MCV (79.0-92.2) fl MCH (25.7-32.2) pg MCHC (32.2-35.5) g/dl RDW Std Deviation (35.1-43.9) fL Plt Count (163-337) K/mm3 MPV (9.4-12.3) fl Neut % (Auto) (34.0-67.9) % Lymph % (Auto) (21.8-53.1) % [place] % (Auto) (5.3-12.2) % Eos % (Auto) (0.8-7.0) Baso % (Auto) (0.1-1.2) % Neut # (Auto) (1.78-5.38) K/mm3 Lymph # (Auto) (1.32-3.57) K/mm3 [place] # (Auto) (0.30-0.82) K/mm3 Eos # (Auto) (0.04-0.54) K/mm3 Baso # (Auto) (0.01-0.08) K/mm3 PT (9.7-12.0) SECONDS INR APTT (21.7-31.4) SECONDS ABG Carboxyhemoglobin 1.2 (0.00-1.50) %THgb Sodium (136-145) mEq/L Potassium (3.5-5.1) mEq/L Chloride (98-107) mEq/L Carbon Dioxide (21-32) mEq/L Anion Gap (5-15) BUN (7-18) mg/dL Creatinine (0.7-1.3) mg/dL Est Cr Clr Drug Dosing mL/min Estimated GFR (MDRD) (>60) mL/min BUN/Creatinine Ratio (14-18) Glucose (83-115) mg/dL Calcium (8.5-10.1) mg/dL Total Bilirubin (0.2-1.0) mg/dL AST (15-37) U/L ALT (16-63) U/L Alkaline Phosphatase (46-116) U/L Troponin I (0.00-0.056) ng/mL C-Reactive Protein 0.3 (<1.0) mg/dL Total Protein (6.4-8.2) g/dl Albumin (3.4-5.0) g/dl Globulin gm/dL Albumin/Globulin Ratio (1-2) Urine Color (Yellow) Urine Appearance (Clear) Urine pH (5.0-8.0) Ur Specific [place] (1.005-1.030) Urine Protein (Negative) Urine Glucose (UA) (Negative) Urine Ketones (Negative) Urine Occult Blood (Negative) Urine Nitrite (Negative) Urine Bilirubin (Negative) Urine Urobilinogen (0.2-1.0) Ur Leukocyte Esterase (Negative) Salicylates 0.4 L (2.8-20) mg/dL Urine Opiates Screen (HYVOON=769) Ur Buprenorphine Scrn (CUTOFF=10) Ur Oxycodone Screen (YXY5LC=558) Urine Methadone Screen (TFH5FB=481) Ur Propoxyphene Screen (YIOCYZ=982) Acetaminophen (10-30) ug/mL Ur Barbiturates Screen (NFNGUG=433) Ur Tricyclics Screen (ICODWU=743) Ur Phencyclidine Scrn (CUTOFF=25) Ur Amphetamine Screen (VLHDKL=841) U Methamphetamines Scrn (LNFHMV=309) U Benzodiazepines Scrn (SQPWAU=874) U Cocaine Metab Screen (NKFKKQ=656) U Marijuana (THC) Screen (CUTOFF=50) Ethyl Alcohol (0.00) gm% SARS-CoV-2 RNA (DIEUDONNE) (NEGATIVE) 10/22/20 10/22/20 10/22/20 Range/Units 12:25 12:25 14:35 WBC (4.23-9.07) K/mm3 RBC (4.63-6.08) M/mm3 Hgb (13.7-17.5) gm/dl Hct (40.1-51.0) % MCV (79.0-92.2) fl MCH (25.7-32.2) pg MCHC (32.2-35.5) g/dl RDW Std Deviation (35.1-43.9) fL Plt Count (163-337) K/mm3 MPV (9.4-12.3) fl Neut % (Auto) (34.0-67.9) % Lymph % (Auto) (21.8-53.1) % [place] % (Auto) (5.3-12.2) % Eos % (Auto) (0.8-7.0) Baso % (Auto) (0.1-1.2) % Neut # (Auto) (1.78-5.38) K/mm3 Lymph # (Auto) (1.32-3.57) K/mm3 [place] # (Auto) (0.30-0.82) K/mm3 Eos # (Auto) (0.04-0.54) K/mm3 Baso # (Auto) (0.01-0.08) K/mm3 PT (9.7-12.0) SECONDS INR APTT (21.7-31.4) SECONDS ABG Carboxyhemoglobin (0.00-1.50) %THgb Sodium (136-145) mEq/L Potassium (3.5-5.1) mEq/L Chloride (98-107) mEq/L Carbon Dioxide (21-32) mEq/L Anion Gap (5-15) BUN (7-18) mg/dL Creatinine (0.7-1.3) mg/dL Est Cr Clr Drug Dosing mL/min Estimated GFR (MDRD) (>60) mL/min BUN/Creatinine Ratio (14-18) Glucose (83-115) mg/dL Calcium (8.5-10.1) mg/dL Total Bilirubin (0.2-1.0) mg/dL AST (15-37) U/L ALT (16-63) U/L Alkaline Phosphatase (46-116) U/L Troponin I (0.00-0.056) ng/mL C-Reactive Protein (<1.0) mg/dL Total Protein (6.4-8.2) g/dl Albumin (3.4-5.0) g/dl Globulin gm/dL Albumin/Globulin Ratio (1-2) Urine Color Yellow (Yellow) Urine Appearance Clear (Clear) Urine pH 7.0 (5.0-8.0) Ur Specific [place] 1.025 (1.005-1.030) Urine Protein Negative (Negative) Urine Glucose (UA) Negative (Negative) Urine Ketones Negative (Negative) Urine Occult Blood Negative (Negative) Urine Nitrite Negative (Negative) Urine Bilirubin Negative (Negative) Urine Urobilinogen 0.2 (0.2-1.0) Ur Leukocyte Esterase Negative (Negative) Salicylates (2.8-20) mg/dL Urine Opiates Screen Negative (SGPBEY=074) Ur Buprenorphine Scrn Negative (CUTOFF=10) Ur Oxycodone Screen Negative (QUA6UI=370) Urine Methadone Screen Negative (CXA4JP=988) Ur Propoxyphene Screen Negative (DRKIDK=415) Acetaminophen (10-30) ug/mL Ur Barbiturates Screen Negative (MXEGBX=829) Ur Tricyclics Screen Negative (JJEYKC=503) Ur Phencyclidine Scrn Negative (CUTOFF=25) Ur Amphetamine Screen Negative (ERNWSA=784) U Methamphetamines Scrn Negative (JCMQPY=099) U Benzodiazepines Scrn Negative (UPZYWC=593) U Cocaine Metab Screen Negative (LUWKPX=822) U Marijuana (THC) Screen Negative (CUTOFF=50) Ethyl Alcohol (0.00) gm% SARS-CoV-2 RNA (DIEUDONNE) Negative (NEGATIVE) Result Diagrams: 10/22/20 10:40 10/22/20 10:40 Sepsis Event Note - Evaluation Sepsis Screening Result: No Definite Risk - Focused Exam Vital Signs: Vital Signs Temp Temp Pulse Pulse Resp BP BP 10/22/20 17:59 99.7 F 69 20 135/67 10/22/20 16:03 119/104 H 10/22/20 10:26 97.4 F 83 16 154/90 H Pulse Ox 10/22/20 17:59 92 L 10/22/20 16:03 10/22/20 10:26 93 L - Problem List (1) Aphasia of unknown origin SNOMED Code(s): 96771572 ICD Code: R47.01 - APHASIA Status: Acute Problem List Initiated/Reviewed/Updated: Yes Orders Last 24hrs: Active Orders 24 hr Category Date Time Status Patient Status [ADT] Routine ADT 10/22/20 15:47 Active Nursing Bedside Swallow Screen [RC] ASDIRECTED Care 10/22/20 17:55 Active Heart Healthy Diet [DIET] Diet 10/23/20 Breakfast Active Brain wo Cont [MR] Stat Exams 10/22/20 12:44 Taken Chest 1V Frontal [CR] Stat Exams 10/22/20 10:36 Taken Head wo Cont [CT] Stat Exams 10/22/20 10:35 Taken Acetaminophen [TylenoL] Med 10/22/20 20:19 Active 650 mg PO Q4H PRN Resuscitation Status Routine Resus Stat 10/22/20 20:34 Ordered Medication Orders Acetaminophen (Tylenol) 650 mg PO Q4H PRN PRN Reason: Pain (mild 1-3) Last Admin: 10/22/20 20:37 Dose: 650 mg Documented by: STEVE Assessment/Plan Comment:: Assessment 89-year-old male with no known history of dementia developed acute aphasia that lingered partially into the night. Last known normal was 1300 hrs. Patient had negative MRI, CT, metabolic work-up, urine drug screen, or other evaluations. Patient be monitored overnight for any change in neurologic status. Recheck blood work in the morning. If completely resolves will send him home for follow-up with his primary care provider and possible referral to neurology. At this time patient has no indication for echocardiogram or carotid artery imaging. - Mortality Measure Prognosis:: Good
[2020-10-22] MEDS ORDERED: Non-Formulary Medication 1 Each (Nitroglycerin [Nitrostat] 0.4 MG) SL PRN (22:05)
[2020-10-22] MEDS ORDERED: Non-Formulary Medication 1 Each (Furosemide [Lasix] 20 MG) PO PRN (22:05)
--- NOTE | 2020-10-23 08:57 | CT ---
Head CT Technique: Multiple axial sections through the brain were obtained. Intravenous contrast was not utilized. Reconstructed coronal and sagittal images were also obtained. Comparison: No prior intracranial imaging is available. Findings: Ventricles along with basal cisterns and sulci over the convexities are mildly prominent. Diffuse diminished density is noted within the periventricular and subcortical white matter which is most likely due to small vessel ischemic demyelination change. No evidence of intracranial hemorrhage. No midline shift or mass-effect is appreciated. Bone window settings were reviewed. Mild mucosal thickening is seen within the ethmoid sinuses which appears to be chronic. No acute paranasal sinus findings are seen within the visualized sinuses. Mastoid sinuses are clear. No acute calvarial abnormality is appreciated. Impression: 1. Senescent change as noted above. 2. Nothing acute is appreciated on noncontrast imaging of the brain. Diagnostic code #2 I agree with preliminary report from [facility], finalized on 10/22/20, 11:46 AM KEYSEATER OPERATOR
--- NOTE | 2020-10-23 08:59 | CR ---
Chest: Portable view of the chest was obtained. Comparison: Previous chest x-ray of 01/25/19. Small azygos lobe is seen. Lungs show no acute parenchymal change. Heart size and mediastinum are within normal limits. Bony structures show prior surgery between the clavicle and scapula. Several old appearing right-sided rib fractures are noted. Impression: 1. Nothing acute is seen on portable chest x-ray. Diagnostic code #2
[2020-10-23] MEDS ORDERED: Non-Formulary Medication 1 Each (Rosuvastatin [Crestor] 20 MG) PO SCH (09:00)
[2020-10-23] MEDS ORDERED: Enoxaparin 40 MG/0.4 ML Syringe SUBCUT SCH (09:00)
[2020-10-23] MEDS ORDERED: Multivitamins,Therapeutic Tab PO SCH (09:00)
[2020-10-23] MEDS ORDERED: Aspirin 81 MG Tab.EC PO SCH (09:00)
[2020-10-23] MEDS ORDERED: Non-Formulary Medication 1 Each (Clopidogrel [Plavix] 75 MG) PO SCH (09:00)
[2020-10-23] MEDS ORDERED: Non-Formulary Medication 1 Each (Losartan [Cozaar] 50 MG) PO SCH (09:00)
[2020-10-23] MEDS ORDERED: Non-Formulary Medication 1 Each (Budesonide/Formoterol 2 INH) INH SCH (09:00)
--- NOTE | 2020-10-23 09:28 | MR ---
MRI brain Technique: T1 sagittal; T2, T2 FLAIR, T1 and diffusion axial; T1 FLAIR coronal images were obtained. Additional gradient echo axial and coronal images were obtained. Comparison: Previous head CT study of 10/22/20 Findings: Ventricles along with basal cisterns and sulci over the convexities are mildly prominent. Scattered areas of increased signal are seen on the long TR sequence within the periventricular and subcortical white matter which is most likely due to small vessel ischemic demyelination change. Normal signal void is felt to be present within the major cerebral arteries within both skull bases. No acute diffusion abnormalities are appreciated. Impression: 1. Senescent change as noted above which is stable from prior noncontrast head CT. 2. No acute diffusion abnormalities are appreciated. Diagnostic code #2 I agree with preliminary report from [facility], finalized on 10/22/20, 3:18 PM AUDIOLOGY DOCTOR
--- NOTE | 2020-10-23 14:37 | PCM.DCSUM1 ---
Discharge Summary - Hospital Course HPI Initial Comments: 89-year-old male brought in by EMS for possible stroke. Patient was brought into the emergency department after being found with difficulty speaking and understanding questions. In the emergency department patient had neurological work-up including CT, MRI, and consultation with neurology. Patient had no abnormalities on MRI to suggest TIA or stroke. Patient had partial recovery by time he made it to the floor but was still having difficulty with finding the right words. Dr. Infante in neurology was consulted again and he stated that he was not sure exactly what the problem was but it was not an acute neurological event. He stated that the most common cause of this in this age group is secondary to dementia. In the emergency department vital signs were stable, white count 4.6, absolute neutrophils 2.16, no bandemia or left shift, hemoglobin 13.9, platelets 194,000, normal renal and hepatic function, glucose 126, troponin negative, INR and PTT normal, negative SARS-CoV-2, negative urine drug screen and alcohol level, negative carboxyhemoglobin, negative UA. Assessment/Plan Comment:: Assessment 89-year-old male with no known history of dementia developed acute aphasia that lingered partially into the night. Last known normal was 1300 hrs. Patient had negative MRI, CT, metabolic work-up, urine drug screen, or other evaluations. Patient be monitored overnight for any change in neurologic status. Recheck blood work in the morning. If completely resolves will send him home for follow-up with his primary care provider and possible referral to neurology. At this time patient has no indication for echocardiogram or carotid artery imaging. Diagnosis: Stroke: No - Discharge Data Discharge Date: 10/23/20 Discharge Disposition: Home, Self-Care 01 Condition: Good - Referral to Home Health Primary Care Physician: Micky Laird MD - Patient Summary/Data Consults: Consultations 10/23/20 08:41 OT Evaluation and Treatment [CONS] Routine PT Evaluation and Treatment [CONS] Routine Hospital Course: Patient had complete recovery overnight. On further discussion with him it appears that he went a couple of nights with poor sleep. 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 Given his age this may have caused some subtle changes in an elderly man with minimal normal memory loss of the aging. If this occurs again he should probably be evaluated at a higher care facility. - Patient Instructions Diet: Heart Healthy Diet Activity: As Tolerated Driving: Do Not Drive Showering/Bathing: May Shower Other/Special Instructions: Follow-up with primary care provider next week. There was no known cause of your mental status change. Dr. Infante at [facility] in [place] neurology department was consulted and felt there was no acute or serious neurologic compromise. - Discharge Plan *PRESCRIPTION DRUG MONITORING PROGRAM REVIEWED*: No *COPY OF PRESCRIPTION DRUG MONITORING REPORT IN PATIENT SUSY: No Home Medications: Home Meds Aspirin [Ecotrin EC] 162 mg PO DAILY 01/25/19 [History] Budesonide/Formoterol [Symbicort 160-4.5 MCG] 2 inh INH BID 01/25/19 [History] Clopidogrel [Plavix] 75 mg PO DAILY 01/25/19 [History] Methotrexate 6 tab PO WEEKLY 01/25/19 [History] Montelukast [Singulair] 10 mg PO BEDTIME 01/25/19 [History] Nitroglycerin [Nitrostat] 0.4 mg SL ASDIRECTED PRN 01/25/19 [History] Rosuvastatin [Crestor] 20 mg PO DAILY 01/25/19 [History] Acetaminophen 650 mg PO Q4HR PRN 10/22/20 [History] Adalimumab [Humira Pen] 1 dose SQ ASDIRECTED 10/22/20 [History] Furosemide [Lasix] 20 mg PO DAILY PRN 10/22/20 [History] Hydrocodone/Acetaminophen [Hydrocodone-Acetamin 5-325 mg] 1 tab PO QID PRN 10/22/20 [History] Losartan [Cozaar] 50 mg PO DAILY 10/22/20 [History] Metoprolol Tartrate 25 mg PO BID 10/22/20 [History] Multivitamin with Minerals [Multiple Vitamin] 1 tab PO DAILY 10/22/20 [History] Patient Handouts: Stroke Prevention Referrals: Micky Laird MD [Primary Care Provider] - 11/09/20 3:00 pm (Hospital follow-up appointment. Please follow up on Nov 09 at 3:00pm. You may call Dr. José's office ([phone]) on Mondays at 07:30 exactly to try to get a sooner appointment. ) - Discharge Summary/Plan Comment DC Time >30 min.: No - General Info Date of Service: 10/25/20 Admission Dx/Problem (Free Text: Admission Diagnosis/Problem Admission Diagnosis/Problem Neurological complaint Subjective Update: Patient doing well overnight. He is fully conversant without any word finding or inappropriate speech. Completely ambulatory without need for assistance. Functional Status: Reports: Pain Controlled - Review of Systems General: Reports: No Symptoms HEENT: Reports: No Symptoms Pulmonary: Reports: No Symptoms Cardiovascular: Reports: No Symptoms Gastrointestinal: Reports: No Symptoms Musculoskeletal: Reports: No Symptoms Neurological: Reports: No Symptoms Psychiatric: Reports: No Symptoms - Patient Data Vitals - Most Recent: Last Vital Signs Temp 97.5 F 10/23/20 11:16 Pulse 62 10/23/20 11:16 Resp 16 10/23/20 11:16 BP 142/79 H 10/23/20 11:16 Pulse Ox 94 L 10/23/20 11:16 Weight - Most Recent: 205 lb 9.6 oz I&O - Last 24 hours: Intake & Output 10/22/20 10/23/20 10/23/20 22:59 06:59 14:59 Intake Total 300 425 700 Output Total 900 600 Balance 300 -475 100 Lab Results - Last 24 hrs: Laboratory Results - last 24 hr 10/22/20 10/22/20 Range/Units 10:46 14:35 C-Reactive Protein 0.3 (<1.0) mg/dL SARS-CoV-2 RNA (DIEUDONNE) Negative (NEGATIVE) Med Orders - Current: Current Medications Discontinued Medications Acetaminophen (Tylenol) 650 mg PO Q4H PRN PRN Reason: Pain (mild 1-3) Last Admin: 10/22/20 20:37 Dose: 650 mg Documented by: Aspirin (Aspirin) 162 mg PO ONETIME ONE Stop: 10/22/20 15:07 Last Admin: 10/22/20 16:00 Dose: 162 mg Documented by: Aspirin (Halfprin) 162 mg PO DAILY [facility] Last Admin: 10/23/20 08:40 Dose: 162 mg Documented by: Clopidogrel Bisulfate (Plavix) 75 mg PO ONETIME ONE Stop: 10/22/20 15:07 Last Admin: 10/22/20 15:59 Dose: 75 mg Documented by: Enoxaparin Sodium (Lovenox) 40 mg SUBCUT DAILY [facility] Last Admin: 10/23/20 08:40 Dose: 40 mg Documented by: Losartan Potassium (Cozaar) 50 mg PO ONETIME ONE Stop: 10/22/20 15:07 Last Admin: 10/22/20 16:03 Dose: 50 mg Documented by: Multivitamins (Thera) 1 each PO DAILY [facility] Last Admin: 10/23/20 08:40 Dose: 1 each Documented by: Non-Formulary Medication (Budesonide/Formoterol) 2 inh INH BID [facility] Non-Formulary Medication (Clopidogrel [Plavix]) 75 mg PO DAILY [facility] Non-Formulary Medication (Furosemide [Lasix]) 20 mg PO DAILY PRN PRN Reason: Other Non-Formulary Medication (Losartan [Cozaar]) 50 mg PO DAILY [facility] Non-Formulary Medication (Montelukast [Singulair]) 10 mg PO BEDTIME [facility] Non-Formulary Medication (Nitroglycerin [Nitrostat]) 0.4 mg SL ASDIRECTED PRN PRN Reason: Chest Pain Non-Formulary Medication (Rosuvastatin [Crestor]) 20 mg PO DAILY [facility] - Exam Quality Assessment: Denies: Supplemental Oxygen General: Reports: Alert, Oriented HEENT: Reports: Pupils Equal, Mucous Membr. Moist/[place] Neck: Reports: Supple Lungs: Reports: Clear to Auscultation, Normal Respiratory Effort Cardiovascular: Reports: Regular Rate, Regular Rhythm GI/Abdominal Exam: Normal Bowel Sounds, Soft, Non-Tender, No Organomegaly, No Distention, No Abnormal Bruit Back Exam: Reports: Normal Inspection, Full Range of Motion Extremities: Normal Inspection, Normal Range of Motion, Non-Tender, No Pedal Edema, Normal Capillary Refill Skin: Reports: Warm, Dry, Intact Neurological: Reports: No New Focal Deficit Psy/Mental Status: Reports: Alert, Normal Affect, Normal Mood
[2020-10-23] MEDS ORDERED: Non-Formulary Medication 1 Each (Montelukast [Singulair] 10 MG) PO SCH (21:00)
== END 2020-10-23 13:35 | disposition home or self-care (01) ==
LOC: JD.ED 10:18 → JD.MS 15:47 → JD.ED 15:48 → JD.MS 17:00
PROVIDERS: ADMIT Family Medicine; ATTEND Family Medicine
DX: R47.01 Aphasia (principal); I25.10 Atherosclerotic heart disease of native coronary artery without angina pectoris; E78.00 Pure hypercholesterolemia, unspecified; I25.2 Old myocardial infarction; J45.909 Unspecified asthma, uncomplicated; Z86.73 Personal history of transient ischemic attack (TIA), and cerebral infarction without residual deficits; Z98.890 Other specified postprocedural states; Z20.822 Contact with and (suspected) exposure to COVID-19; Z79.82 Long term (current) use of aspirin; Z79.899 Other long term (current) drug therapy
CPT/HCPCS: 36415; 70450; 70551; 71045; 80053; 80143; 80179; 80306; 80307; 81003; 82375; 84484; 85025; 85610; 85730; 86140; 93005; 97161; 99285; A9270; J1650; U0002; 93010; 96372; 99284; G0378

== ENCOUNTER 2021-09-12 10:56 | Emergency (ER) | payer MEDICARE, OTHER ==
--- NOTE | 2021-09-12 12:05 | EDM.PDOC ---
ED HPI GENERAL MEDICAL PROBLEM - General Chief Complaint: Neurological Problem Stated Complaint: NECK-HEAD PAIN\\SEEING BLACK SPOTS Time Seen by Provider: 09/12/21 11:05 Source of Information: Reports: Patient History Limitations: Reports: No Limitations - History of Present Illness INITIAL COMMENTS - FREE TEXT/NARRATIVE: 89-year-old male presents the emergency department today with complaints of severe headache yesterday which has resolved and today is seeing black floaters. States he woke at about 4 AM yesterday morning with a severe headache to the base of his skull. He states he did take some Tylenol and that did not help. He said the headache did gradually resolve at approximately 4 PM yesterday which was 12 hours later. At the time of the headache he denied any nausea or vomiting, blurred vision, double vision, dizziness or hemiplegia. Denies any recent falls or injuries to his head. He states that he woke this morning and is seeing black floaters in his vision. Headache has since resolved. He states he does take Plavix and 2 baby aspirin daily. He does have a history of [place]. No history of stroke. Patient also states that he has had some urinary symptoms of recent and he does have a history of frequent UTIs in the past. - Related Data Allergies Allergy/AdvReac Type Severity Reaction Status Date / Time No Known Allergies Allergy Verified 09/12/21 11:07 Home Meds: Home Meds Aspirin [Ecotrin EC] 162 mg PO DAILY 01/25/19 [History] Methotrexate 6 tab PO WEEKLY 01/25/19 [History] Montelukast [Singulair] 10 mg PO BEDTIME 01/25/19 [History] Nitroglycerin [Nitrostat] 0.4 mg SL ASDIRECTED PRN 01/25/19 [History] Rosuvastatin [Crestor] 20 mg PO DAILY 01/25/19 [History] Acetaminophen 650 mg PO Q4HR PRN 10/22/20 [History] Furosemide [Lasix] 20 mg PO DAILY PRN 10/22/20 [History] Losartan [Cozaar] 50 mg PO DAILY 10/22/20 [History] Metoprolol Tartrate 25 mg PO BID 10/22/20 [History] Beta-Carotene(A)-Vits C,E/Mins [Vision Vitamins] 1 tab PO DAILY 09/12/21 [History] Clopidogrel Bisulfate [Plavix] 75 mg PO DAILY 09/12/21 [History] Ergocalciferol (Vitamin D2) [Vitamin D2] 125 mcg PO DAILY 09/12/21 [History] Finasteride 5 mg PO ACLUNCH 09/12/21 [History] Ixekizumab [Taltz Syringe] 80 mg SUBCUT ASDIRECTED 09/12/21 [History] Zinc 50 mg PO DAILY 09/12/21 [History] Past Medical History HEENT History: Reports: Impaired Vision Cardiovascular History: Reports: CAD, High Cholesterol, [place] Respiratory History: Reports: Asthma Neurological History: Reports: CVA Other Neuro History: 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 Oncologic (Cancer) History: Reports: Malignant Melanoma, Other (See Below) Dermatologic History: Reports: Melanoma, Other (See Below) - Past Surgical History HEENT Surgical History: Reports: Cataract Surgery Cardiovascular Surgical History: Reports: Carotid Stents Musculoskeletal Surgical History: Reports: Knee Replacement, Shoulder Replacement Oncologic Surgical History: Reports: Other (See Below) Other Oncologic Surgeries/Procedures: skin biopsy of nose and ears Dermatological Surgical History: Reports: Skin Biopsy, Skin Graft Social & Family History - Tobacco Use Tobacco Use Status *Q: Never Tobacco User Second Hand Smoke Exposure: No - Caffeine Use Caffeine Use: Reports: Coffee - Recreational Drug Use Recreational Drug Use: No ED ROS GENERAL - Review of Systems Review Of Systems: Comprehensive ROS is negative, except as noted in HPI. - Physical Exam Exam: See Below Exam Limited By: No Limitations General Appearance: Alert, WD/WN, No Apparent Distress Eye Exam: Left Eye: Vision Changes (Patient appreciate "black spots "in his vision), Bilateral Eye: PERRL Ears: Normal External Exam, Hearing Grossly Normal Nose: Normal Inspection Throat/Mouth: Normal Inspection, Normal Lips, Normal Voice, No Airway Compromise Head Exam: Atraumatic, Normocephalic Neck: Normal Inspection, Supple, Non-Tender, Full Range of Motion Respiratory/Chest: No Respiratory Distress, Lungs Clear, Normal Breath Sounds, No Accessory Muscle Use, Chest Non-Tender Cardiovascular: Normal Peripheral Pulses, Regular Rate, Rhythm, No Edema, No Murmur GI/Abdominal: Normal Bowel Sounds, Soft, Non-Tender, No Distention (Male) Exam: Deferred Rectal (Males) Exam: Deferred Neuro Exam (Abbreviated): Alert, Oriented, Normal Cognition, Normal Gait, Normal Reflexes, Other (Slight right-sided weakness to the upper extremity as well as slight right-sided facial droop with smiling and tongue deviation to the left) Back Exam: Normal Inspection, Full Range of Motion Extremities: Normal Inspection, Normal Range of Motion, Non-Tender, No Pedal Edema, Normal Capillary Refill Psychiatric: Normal Affect, Normal Mood Skin Exam: Warm, Dry, Intact, Normal Color, No Rash #1 Interpretation EKG Date: 09/12/21 Time: 11:38 Rhythm: NSR Rate (Beats/Min): 60 [place]: Normal P-Wave: Present QRS: Normal ST-T: Normal QT: Normal EKG Interpretation Comments: Per Dr. Palmer interpretation: Sinus rhythm at 60 bpm Course - Vital Signs Text/Narrative:: As stated above, patient presents with severe headache onset early yesterday morning resolved approximately 12 hours later. The time of my exam, patient is hemodynamically stable. Full neuro exam was completed. I do note some slight right-sided facial drooping when smiling as well as tongue deviation to the left side. He does have slight right upper extremity weakness which is greater than the left side. Patient is awake alert and oriented x4. Patient does note floaters in his vision in left eye however right eye does not appreciate any floaters. Remainder of neuro exam is unremarkable. Will obtain a stat CT of the head. Also obtain an EKG and lab studies to include a CBC, CMP and magnesium level. As well as an EKG and a urinalysis with micro and culture if indicated. Last Recorded V/S: Last Vital Signs Temp 98.1 F 09/12/21 11:06 Pulse 71 09/12/21 11:06 Resp 18 09/12/21 11:06 BP 127/77 09/12/21 11:06 Pulse Ox 96 09/12/21 11:06 - Orders/Labs/Meds Labs: Laboratory Tests 09/12/21 09/12/21 09/12/21 Range/Units 12:00 12:00 12:00 WBC 7.87 (4.23-9.07) K/mm3 RBC 4.21 L (4.63-6.08) M/mm3 Hgb 13.2 L (13.7-17.5) gm/dl Hct 41.1 (40.1-51.0) % MCV 97.6 H (79.0-92.2) fl MCH 31.4 (25.7-32.2) pg MCHC 32.1 L (32.2-35.5) g/dl RDW Std Deviation 46.4 H (35.1-43.9) fL Plt Count 178 (163-337) K/mm3 MPV 10.5 (9.4-12.3) fl Neut % (Auto) 63.5 (34.0-67.9) % Lymph % (Auto) 19.8 L (21.8-53.1) % [place] % (Auto) 12.8 H (5.3-12.2) % Eos % (Auto) 3.3 (0.8-7.0) Baso % (Auto) 0.3 (0.1-1.2) % Neut # (Auto) 5.00 (1.78-5.38) K/mm3 Lymph # (Auto) 1.56 (1.32-3.57) K/mm3 [place] # (Auto) 1.01 H (0.30-0.82) K/mm3 Eos # (Auto) 0.26 (0.04-0.54) K/mm3 Baso # (Auto) 0.02 (0.01-0.08) K/mm3 Sodium 140 (136-145) mEq/L Potassium 4.1 (3.5-5.1) mEq/L Chloride 105 (98-107) mEq/L Carbon Dioxide 28 (21-32) mEq/L Anion Gap 11.1 (5-15) BUN 15 (7-18) mg/dL Creatinine 1.0 (0.7-1.3) mg/dL Est Cr Clr Drug Dosing 57.71 mL/min Estimated GFR (MDRD) > 60 (>60) mL/min BUN/Creatinine Ratio 15.0 (14-18) Glucose 111 H (70-99) mg/dL Calcium 9.2 (8.5-10.1) mg/dL Magnesium 1.8 (1.8-2.4) mg/dL Total Bilirubin 0.4 (0.2-1.0) mg/dL AST 32 (15-37) U/L ALT 29 (16-63) U/L Alkaline Phosphatase 62 (46-116) U/L Total Protein 6.9 (6.4-8.2) g/dl Albumin 3.4 (3.4-5.0) g/dl Globulin 3.5 gm/dL Albumin/Globulin Ratio 1.0 (1-2) Urine Color Yellow (Yellow) Urine Appearance Clear (Clear) Urine pH 6.0 (5.0-8.0) Ur Specific [place] 1.025 (1.005-1.030) Urine Protein Negative (Negative) Urine Glucose (UA) Negative (Negative) Urine Ketones Negative (Negative) Urine Occult Blood Negative (Negative) Urine Nitrite Negative (Negative) Urine Bilirubin Negative (Negative) Urine Urobilinogen 0.2 (0.2-1.0) Ur Leukocyte Esterase Negative (Negative) - Re-Assessments/Exams Free Text/Narrative Re-Assessment/Exam: 09/12/21 12:[address] of the head compared with prior MRI of the brain and head CT study both performed on 10/22/2020: Ventricles along with basal cisterns and sulci over the convexities are mildly prominent for the patient's age. T here is also prominence of the sulci over the cerebellum. Diminished density is noted within the periventricular and subcortical white matter which is most likely due to small vessel ischemic demyelination change. No evidence of intracranial hemorrhage is seen. No midline shift or mass-effect is seen. Bone window settings were reviewed. No acute calvarial abnormality is appreciated. Visualized paranasal sinuses show minimal mucosal thickening within the ethmoid sinuses. Visualized mastoid sinuses are clear. No acute calvarial abnormalities appreciated. Atherosclerotic calcification is noted within the carotid siphon. Impression: 1. Mild senescent change as described above. 2. Slight paranasal sinus findings which are most likely chronic. 3. Nothing acute is seen on noncontrast head CT study. 09/12/21 13:01 Hematology reveals a WBC of 7.7, hemoglobin 13.2, hematocrit 41.1, platelet count 178 Chemistry is unremarkable Urinalysis is unremarkable 09/12/21 15:[address] the neck angiogram impression: 1. Atherosclerotic change within both distal common carotid arteries and within both carotid bulbs. No significant stenosis or occlusion is seen. 2. Dominant left vertebral artery with no focal stenosis or occlusion seen. Radiologist impression CT the brain angiogram: 1. Atherosclerotic calcification within both carotid siphons. 2. Narrowing of the right A1 communicating artery which is most likely on an atherosclerotic basis. Left A1 communicating artery is widely patent. 3. Incidental note of maturity of flow to the posterior cerebral arteries occurred from the anterior arteries. 4. No other stenosis or occlusion is seen. No aneurysm is seen. Patient was reassessed. And full neuro exam is completely unremarkable. All deficits that were noted earlier have resolved. Patient states that "black spots "seen in his visual field have almost completely resolved. States that he does have an exam with his eye doctor 3 days from now. Recommend that he follow-up with his primary care provider late this week as well. Discussed this with the patient and he is agreeable to this plan. Departure - Departure Time of Disposition: 15:30 Disposition: Home, Self-Care 01 Condition: Good Clinical Impression: Floaters in visual field Qualifiers: Laterality: left Qualified Code(s): H43.392 - Other vitreous opacities, left eye - Discharge Information Instructions: Eye Floaters Referrals: PCP,None [Primary Care Provider] - Forms: ED Department Discharge Additional Instructions: You were seen in the emergency department today after complaining of a severe headache yesterday and then having black spots noted in your vision today. CT scan of the head as well as angiograms of the neck and brain were completed. They were essentially unremarkable. You not appear to have had a stroke. You are black spots noted in your visual field do seem to be resolving. Recommend that you follow-up with your eye doctor as scheduled on Monday. Also would like for you to follow-up with your primary care provider later this week for reevaluation. Should your condition worsen or change, do not hesitate returning to the emergency department. Sepsis Event Note (ED) - Focused Exam Vital Signs: Vital Signs Temp Pulse Resp BP Pulse Ox 09/12/21 11:06 98.1 F 71 18 127/77 96
--- NOTE | 2021-09-12 12:38 | CT ---
Head CT Technique: Multiple axial sections through the brain were obtained. Intravenous contrast was not utilized. Reconstructed coronal and sagittal images were obtained. Comparison: Prior MRI brain and head CT study both performed on 10/22/20. Findings: Ventricles along with basal cisterns and sulci over the convexities are mildly prominent for the patient's age. There is also prominence of the sulci over the cerebellum. Diminished density is noted within the periventricular and subcortical white matter which is most likely due to small vessel ischemic demyelination change. No evidence of intracranial hemorrhage is seen. No midline shift or mass-effect is seen. Bone window settings were reviewed. No acute calvarial abnormality is appreciated. Visualized paranasal sinuses show minimal mucosal thickening within the ethmoid sinuses. Visualized mastoid sinuses are clear. No acute calvarial abnormality is appreciated. Atherosclerotic calcification is noted within the carotid siphon. Impression: 1. Mild senescent change as described above. 2. Slight paranasal sinus findings which are most likely chronic. 3. Nothing acute is seen on noncontrast head CT study. Diagnostic code #2
--- NOTE | 2021-09-12 14:47 | CT ---
CT neck angiogram Technique: Multiple axial sections through the neck were obtained. Intravenous contrast was utilized during the arterial phase. Multiple MIP images were then obtained. Comparison: No prior neck vascular imaging is available. Findings: Both common carotid arteries are patent. There is mild atheromatous change being seen within both distal common carotid arteries as well as within the carotid bulbs on both sides. Internal carotid arteries appear to be patent. Both external carotid arteries are patent. No focal stenosis or occlusion is seen. Left vertebral artery is patent over a smaller right vertebral artery compatible with dominant vertebral artery. This is a normal variant. Basilar artery is patent. No focal stenosis or occlusion is seen. Impression: 1. Atherosclerotic change within both distal common carotid arteries and within both carotid bulbs. No significant stenosis or occlusion is seen. 2. Dominant left vertebral artery with no focal stenosis or occlusion seen. Diagnostic code #2
--- NOTE | 2021-09-12 14:53 | CT ---
CT brain angiogram Technique: Multiple axial sections through the brain were obtained. Study is centered to the [place] of [place]. Intravenous contrast was utilized during the arterial phase. Comparison: No prior angiogram study of the brain is available. Findings: Dominant left vertebral artery is seen. Basilar artery is noted. Both posterior cerebral arteries are seen with the majority of flow arising from the anterior circulation on both sides. Atherosclerotic calcification is seen within the carotid siphon. There is normal flow into both middle cerebral arteries. Both anterior cerebral arteries are patent. Right A1 communicating artery is smaller than the left side. This most likely relates to atherosclerotic change. Left A1 segment is patent. No focal aneurysm is appreciated. Impression: 1. Atherosclerotic calcification within both carotid siphons. 2. Narrowing of the right A1 communicating artery which is most likely on an atherosclerotic basis. Left A1 communicating artery is widely patent. 3. Incidental note of majority of flow to the posterior cerebral arteries occur from the anterior arteries. 4. No other stenosis or occlusion is seen. No aneurysm is seen. Diagnostic code #2
== END 2021-09-12 15:45 | disposition home or self-care (01) ==
LOC: JD.ED 10:56
DX: H43.392 Other vitreous opacities, left eye (principal); I25.10 Atherosclerotic heart disease of native coronary artery without angina pectoris; E78.00 Pure hypercholesterolemia, unspecified; I25.2 Old myocardial infarction; J45.909 Unspecified asthma, uncomplicated; Z86.73 Personal history of transient ischemic attack (TIA), and cerebral infarction without residual deficits; Z79.82 Long term (current) use of aspirin; Z79.02 Long term (current) use of antithrombotics/antiplatelets; Z79.899 Other long term (current) drug therapy
CPT/HCPCS: 36415; 70450; 70450-26; 70496; 70496-26; 70498; 70498-26; 80053; 81003; 83735; 85025; 93005; 99284-25